=== PATIENT | female | born 2000 | race Caucasian/White ===

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

== ENCOUNTER 2020-04-30 13:10 | Emergency (ER) | payer OTHER, MEDICAID ==
[2020-04-30] MEDS ORDERED: Sodium Chloride 0.9% 10 ML Syringe FLUSH PRN ×2 (13:31→17:12)
[2020-04-30] MEDS ORDERED: Sodium Chloride 0.9% 1,000 ML IV ONE ×3 (13:31→17:59)
[2020-04-30] MEDS ORDERED: Ondansetron 4 MG/2 ML SDV IVPUSH ONE (13:34)
[2020-04-30] MEDS ORDERED: LORazepam 2 MG/ML SDV IVPUSH ONE (13:48)
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
[2020-04-30] MEDS ORDERED: Ketorolac 30 MG/ML SDV IVPUSH ONE (14:15)
--- NOTE | 2020-04-30 14:30 | CR ---
Chest: Portable view of the chest was obtained. Comparison: No prior chest imaging is available. Heart size and mediastinum are normal. Lungs are clear with no acute parenchymal change. Scoliosis is noted within the spine. Impression: 1. Scoliosis. 2. Nothing acute is identified on portable chest x-ray. Diagnostic code #2 This report was dictated in MDT
[2020-04-30] MEDS ORDERED: LORazepam 2 MG/ML SDV IV ONE (14:50)
[2020-04-30] MEDS ORDERED: Iopamidol 612 MG/ML 100 ML Bottle IVPUSH ONE (17:12)
--- NOTE | 2020-04-30 17:32 | CT ---
CT left elbow Technique: Multiple axial sections to the left elbow were obtained. Intravenous contrast was utilized. Reconstructed coronal and sagittal images were obtained. Findings: There is enhancement being seen within the subcutaneous tissues at the flexure point of the elbow. This enhancement extends into the adjacent muscle. There is some soft tissue air being seen within the muscle and subcutaneous fat. Low density is noted within the subcutaneous fat presumably due to small abscess. Other findings felt compatible with cellulitis and myositis. Overall area of enhancement is approximately 3.5 cm x 1.6 cm. No findings of osteomyelitis are seen. Impression: 1. Air within the anterior soft tissues at the elbow flexure. Please correlate if there has been interval intervention or whether this represents air from anaerobic infection. 2. Low density within the adjacent subcutaneous fat most likely representing superficial abscess. Enhancement is noted within the subcutaneous fat as well as within the adjacent muscle compatible with cellulitis and myositis. 3. No osteomyelitis is seen. Diagnostic code #3 This report was dictated in MDT
== END 2020-04-30 18:20 ==
LOC: JD.ED 13:10 → EEVIPCON 13:10 → JD.ED 18:20
DX: L02.414 Cutaneous abscess of left upper limb (principal); L03.114 Cellulitis of left upper limb; R11.2 Nausea with vomiting, unspecified; F17.210 Nicotine dependence, cigarettes, uncomplicated; Z88.1 Allergy status to other antibiotic agents; Z20.828 Contact with and (suspected) exposure to other viral communicable diseases
CPT/HCPCS: 36415; 71045; 73201; 80053; 80074; 80306; 81001; 83605; 83690; 85007; 85027; 85610; 86140; 86803; 87040; 87075; 87077; 87184; 87205; 87340; 87449; 87635; 96361; 96374; 96375; 96376; 99285; J1885; J2060; J2405; J3370; J7030; J7050; Q9967; 99284; G0433; U0002

== ENCOUNTER 2020-05-07 23:09 | Emergency (ER) | payer OTHER, MEDICAID ==
--- NOTE | 2020-05-07 23:27 | EDM.PDOC ---
ED HPI GENERAL MEDICAL PROBLEM - General Chief Complaint: Skin Complaint Stated Complaint: NEEDS STITCHES REDONE Time Seen by Provider: 05/07/20 23:25 - History of Present Illness INITIAL COMMENTS - FREE TEXT/NARRATIVE: 20-year-old female presents the emergency room with stitches that popped loose on a abscess she had drained on the fourth of this month. Patient went to change her dressing and noticed that her stitches were coming loose. Patient had a antecubital fossa abscess drained at [facility] on the fourth. Patient denies fevers or chills she has been doing daily dressing changes as directed. She has been taking her Ceftin 2 and 50 mg p.o. twice daily and her Flagyl 250 mg 3 times daily she is to be on these for a week. Patient is not having significant pain or discomfort no significant drainage from the area Left Arm Pain Score (Numeric/FACES): 5 - Related Data Allergies Allergy/AdvReac Type Severity Reaction Status Date / Time amoxicillin [From Augmentin] AdvReac Vomiting Verified 05/07/20 23:26 clavulanic acid AdvReac Vomiting Verified 05/07/20 23:26 [From Augmentin] Home Meds: Home Meds Ibuprofen [Motrin] 0 mg PO TID 05/07/20 [History] Past Medical History Genitourinary History: Reports: UTI, Recurrent OFFICE EMPLOYEE History: Reports: Other (See Below) Other OFFICE EMPLOYEE History: PID Neurological History: Reports: Seizure Other Neuro History: "seizures caused from stress" - Past Surgical History HEENT Surgical History: Reports: Adenoidectomy, Myringotomy w Tube(s), Tonsillectomy Female Surgical History: Reports: Other (See Below) Other Female Surgeries/Procedures: PID Social & Family History - Family History Family Medical History: Noncontributory - Caffeine Use Caffeine Use: Reports: Coffee ED ROS GENERAL - Review of Systems Review Of Systems: See Below Constitutional: Reports: No Symptoms. Denies: Fever, Chills Respiratory: Reports: No Symptoms Cardiovascular: Reports: No Symptoms GI/Abdominal: Reports: No Symptoms ED EXAM, SKIN/RASH Exam: See Below Exam Limited By: No Limitations General Appearance: Alert, No Apparent Distress Head: Atraumatic, Normocephalic Neck: Normal Inspection, Supple, Non-Tender, Full Range of Motion Respiratory/Chest: No Respiratory Distress, Lungs Clear, Normal Breath Sounds Cardiovascular: Regular Rate, Rhythm, No Edema, No Murmur Extremities: Other (Examination of her left antecubital area shows multiple horizontal mattress stitches on the lateral aspect of the incision the first stitch is intact the second and third 1 have pulled loose the remaining remaining ones appear to be intact there is no significant drainage or erythema noted. She has some clear serous fluid in the open area. This is cultured. The 2 stitches that were pulled loose from the proximal skin were removed without difficulty. Sterile dressing applied.) Course - Vital Signs Last Recorded V/S: Last Vital Signs Temp 36.4 C 05/07/20 23:21 Pulse 81 05/07/20 23:21 Resp 16 05/07/20 23:21 BP 141/99 H 05/07/20 23:21 Pulse Ox 100 05/07/20 23:21 - Orders/Labs/Meds Orders: Active Orders 24 hr Category Date Time Status CULTURE WOUND [RM] Stat Lab 05/07/20 23:44 Received - Re-Assessments/Exams Free Text/Narrative Re-Assessment/Exam: 05/07/20 23:59 Case was discussed with Dr. Sallie Coleman who is on-call for Dr. Reed who agrees. At his recommendation we did culture the serous drainage will not extend antibiotics until culture and sensitivity are reviewed. Patient has follow-up on the Departure - Departure Time of Disposition: 00:00 Disposition: Home, Self-Care 01 Clinical Impression: Wound dehiscence, surgical - Discharge Information Forms: ED Department Discharge Additional Instructions: Return to the emergency room with any questions problems or worsening symptoms. Call your surgeons office tomorrow and confirm that the stitches are supposed to be removed on the . Informed them that you were seen here in the emergency room this evening and I did discuss the case with Dr. Sallie Coleman. Culture and sensitivity was obtained and is pending. Continue your daily dressing changes as advised. Continue with the antibiotics until all gone. Sepsis Event Note (ED) - Focused Exam Vital Signs: Vital Signs Temp Pulse Resp BP Pulse Ox 05/07/20 23:21 36.4 C 81 16 141/99 H 100 - My Orders Last 24 Hours: My Active Orders 05/07/20 23:44 CULTURE WOUND [RM] Stat - Assessment/Plan Last 24 Hours: My Active Orders 05/07/20 23:44 CULTURE WOUND [RM] Stat
== END 2020-05-08 00:11 | disposition home or self-care (01) ==
LOC: JD.ED 23:09
DX: T81.30XA Disruption of wound, unspecified, initial encounter (principal); Z88.1 Allergy status to other antibiotic agents; Z79.899 Other long term (current) drug therapy
CPT/HCPCS: 87070; 99282; 99283

== ENCOUNTER 2021-06-19 17:53 | Emergency (ER) | payer MEDICAID, OTHER ==
[2021-06-19] MEDS ORDERED: Ibuprofen 600 MG Tab PO ONE (18:16)
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
--- NOTE | 2021-06-20 06:55 | CR ---
Right forearm: 2 views of the right forearm were obtained. Comparison: No prior study is available. Soft tissue swelling is seen. Calcifications are seen around the elbow compatible with old injury. No acute fracture or other acute bony abnormality is seen. Impression: 1. Soft tissue swelling. 2. Old abnormality is noted off the elbow. 3. No definite acute fracture is seen. Diagnostic code #2
== END 2021-06-19 19:30 | disposition home or self-care (01) ==
LOC: JD.ED 17:53
DX: S57.81XA Crushing injury of right forearm, initial encounter (principal); Z88.0 Allergy status to penicillin; Z72.0 Tobacco use; W23.0XXA Caught, crushed, jammed, or pinched between moving objects, initial encounter
CPT/HCPCS: 73090; 99283; A9270

== ENCOUNTER 2021-06-28 11:30 | Emergency (ER) | payer MEDICAID ==
[2021-06-28] MEDS ORDERED: Sodium Chloride 0.9% 10 ML Syringe FLUSH PRN (11:43)
[2021-06-28] MEDS ORDERED: LORazepam 2 MG/ML SDV IVPUSH ONE (11:43)
--- NOTE | 2021-06-28 11:50 | EDM.PDOC ---
ED HPI GENERAL MEDICAL PROBLEM - General Chief Complaint: Neurological Problem Stated Complaint: RENATA AMB Time Seen by Provider: 06/28/21 11:34 Source of Information: Reports: Patient, RN Notes Reviewed History Limitations: Reports: No Limitations - History of Present Illness INITIAL COMMENTS - FREE TEXT/NARRATIVE: Patient is a 21-year-old female who presents to the ER for the evaluation of a seizure. Patient was brought in by [facility]. Apparently the patient was at work today, when she suffered from a seizure. Patient has a history of seizures but is not on any medications for these. States she has never been on medications. Patient's not aware if she hit her head, but she is not having any sort of headache or anything like that. She states that for the past few days however she has felt a little bit dizzy or lightheaded. Patient does have a history of using methamphetamines roughly 1 to 2 weeks ago. Patient does appear to be under the influence of some sort of substance at this time. Her gait is very unsteady, she seems a little bit slow or off as well. But she does answer questions appropriately. She is not having any fevers or chills, cough or shortness of breath, or any sort of nausea/vomiting/diarrhea. Patient states that she has had some "ear draining" for the last few days as well. States she never had a neurologist, and she does not really have a primary care provider as well. - Related Data Allergies Allergy/AdvReac Type Severity Reaction Status Date / Time amoxicillin [From Augmentin] AdvReac Vomiting Verified 06/28/21 11:38 clavulanic acid AdvReac Vomiting Verified 06/28/21 11:38 [From Augmentin] Home Meds: Home Meds Ibuprofen [Motrin] 0 mg PO TID 05/07/20 [History] Cefdinir [Omnicef] 300 mg PO BID 10 Days #20 cap 06/28/21 [Rx] Past Medical History Genitourinary History: Reports: UTI, Recurrent TRIMMER MEAT History: Reports: Other (See Below) Other TRIMMER MEAT History: PID Neurological History: Reports: Seizure Other Neuro History: "seizures caused from stress" not on medications - Past Surgical History HEENT Surgical History: Reports: Adenoidectomy, Myringotomy w Tube(s), Tonsillectomy Female Surgical History: Reports: Other (See Below) Other Female Surgeries/Procedures: PID Social & Family History - Family History Family Medical History: No Pertinent Family History - Caffeine Use Caffeine Use: Reports: Coffee, Energy Drinks, Soda ED ROS GENERAL - Review of Systems Review Of Systems: Comprehensive ROS is negative, except as noted in HPI. - Physical Exam Exam: See Below Exam Limited By: No Limitations General Appearance: Alert, WD/WN, No Apparent Distress, Other (pt does appear to be under the influence of some substance. She has some generalized jerkiness- but this does not seem too much worse than some of the last times I have evaluated her. She answers questions appropriately.) Eye Exam: Bilateral Eye: EOMI, Normal Inspection, PERRL (pupils are dilated) Ears: Normal External Exam, Normal Canal, Hearing Grossly Normal, Other (L EAC does have cerumen impaction, R EAC appears within normal limits.) Throat/Mouth: Normal Inspection, Normal Lips, Normal Teeth, Normal Gums, Normal Oropharynx, Normal Voice, No Airway Compromise Head Exam: Atraumatic, Normocephalic Respiratory/Chest: No Respiratory Distress, Lungs Clear, Normal Breath Sounds, No Accessory Muscle Use, Chest Non-Tender Cardiovascular: Normal Peripheral Pulses, Regular Rate, Rhythm, No Edema GI/Abdominal: Normal Bowel Sounds, Soft, Non-Tender, No Distention, No Mass Neuro Exam (Abbreviated): Alert, Oriented, Normal Cognition, No Motor/Sensory Deficits Extremities: Normal Inspection, Normal Capillary Refill Psychiatric: Normal Affect, Normal Mood Skin Exam: Warm, Dry, Intact, Normal Color, No Rash Course - Vital Signs Last Recorded V/S: Last Vital Signs Temp 96.9 F 06/28/21 11:32 Pulse 90 06/28/21 11:32 Resp 18 06/28/21 11:32 BP 148/134 H 06/28/21 11:32 Pulse Ox 100 06/28/21 11:32 - Orders/Labs/Meds Orders: Active Orders 24 hr Category Date Time Status Peripheral IV Care [RC] . DIRECTED Care 06/28/21 11:43 Ordered CULTURE URINE [MREF] Urgent Lab 06/28/21 12:42 Ordered Sodium Chloride 0.9% [Saline Flush] Med 06/28/21 15:45 Active 10 ml FLUSH ASDIRECTED Sodium Chloride 0.9% [Saline Flush] Med 06/28/21 11:43 Ordered 10 ml FLUSH ASDIRECTED PRN Peripheral IV Insertion Adult [OM.PC] Routine Oth 06/28/21 11:42 Ordered Medication Orders Sodium Chloride (Sodium Chloride 0.9% 10 Ml Syringe) 10 ml FLUSH ASDIRECTED PRN PRN Reason: Keep Vein Open Last Admin: 06/28/21 11:53 Dose: 10 ml Documented by: MACHO Sodium Chloride (Sodium Chloride 0.9% 10 Ml Syringe) 10 ml FLUSH ASDIRECTED DOUGIE Last Admin: 06/28/21 16:17 Dose: 10 ml Documented by: Labs: Laboratory Tests 06/28/21 06/28/21 06/28/21 Range/Units 11:45 11:45 11:45 WBC 10.31 H (3.98-10.04) K/mm3 RBC 5.09 (3.98-5.22) M/mm3 Hgb 15.8 H (11.2-15.7) gm/dl Hct 46.4 H (34.1-44.9) % MCV 91.2 D (79.4-94.8) fl MCH 31.0 (25.6-32.2) pg MCHC 34.1 (32.2-35.5) g/dl RDW Std Deviation 41.4 (36.4-46.3) fL Plt Count 264 D (182-369) K/mm3 MPV 10.3 (9.4-12.3) fl Neut % (Auto) 79.4 H (34.0-71.1) % Lymph % (Auto) 15.6 L (19.3-51.7) % Benson % (Auto) 4.2 L (4.7-12.5) % Eos % (Auto) 0.4 L (0.7-5.8) Baso % (Auto) 0.2 (0.1-1.2) % Neut # (Auto) 8.19 H (1.56-6.13) K/mm3 Lymph # (Auto) 1.61 (1.18-3.74) K/mm3 Benson # (Auto) 0.43 H (0.24-0.36) K/mm3 Eos # (Auto) 0.04 (0.04-0.36) K/mm3 Baso # (Auto) 0.02 (0.01-0.08) K/mm3 Sodium (136-145) mEq/L Potassium (3.5-5.1) mEq/L Chloride (98-107) mEq/L Carbon Dioxide (21-32) mEq/L Anion Gap (5-15) BUN (7-18) mg/dL Creatinine (0.55-1.02) mg/dL Est Cr Clr Drug Dosing mL/min Estimated GFR (MDRD) (>60) mL/min BUN/Creatinine Ratio (14-18) Glucose (70-99) mg/dL Calcium (8.5-10.1) mg/dL Magnesium (1.8-2.4) mg/dL Total Bilirubin (0.2-1.0) mg/dL AST (15-37) U/L ALT (14-59) U/L Alkaline Phosphatase (46-116) U/L C-Reactive Protein (<1.0) mg/dL Total Protein (6.4-8.2) g/dl Albumin (3.4-5.0) g/dl Globulin gm/dL Albumin/Globulin Ratio (1-2) Urine Color Yellow (Yellow) Urine Appearance Clear (Clear) Urine pH 6.0 (5.0-8.0) Ur Specific [place] > or = 1.030 (1.005-1.030) Urine Protein Negative (Negative) Urine Glucose (UA) Negative (Negative) Urine Ketones Negative (Negative) Urine Occult Blood Negative (Negative) Urine Nitrite Negative (Negative) Urine Bilirubin Negative (Negative) Urine Urobilinogen 0.2 (0.2-1.0) Ur Leukocyte Esterase Trace H (Negative) Urine RBC 0-5 (0-5) /hpf Urine WBC 5-10 H (0-5) /hpf Ur Squamous Epith Cells 5-10 H (0-5) /hpf Amorphous Sediment Moderate H (NOT SEEN) /hpf Urine Bacteria Moderate H (FEW) /hpf Urine Mucus Moderate H (FEW) /hpf Urine Opiates Screen Negative (EVBJAT=735) Ur Buprenorphine Scrn Negative (CUTOFF=10) Ur Oxycodone Screen Negative (SOG1OD=685) Urine Methadone Screen Negative (SWBJAW=031) Ur Propoxyphene Screen Negative (JMSMUE=015) Ur Barbiturates Screen Negative (UOWUGW=392) Ur Tricyclics Screen Negative (ZDTAGK=441) Ur Phencyclidine Scrn Negative (CUTOFF=25) Ur Amphetamine Screen Negative (JYPNZM=932) U Methamphetamines Scrn Negative (RSADLK=654) U Benzodiazepines Scrn Negative (ZHXIIM=112) U Cocaine Metab Screen Negative (ETHSGQ=889) U Marijuana (THC) Screen Negative (CUTOFF=50) Ethyl Alcohol (0.00) gm% 06/28/21 06/28/21 Range/Units 11:45 11:45 WBC (3.98-10.04) K/mm3 RBC (3.98-5.22) M/mm3 Hgb (11.2-15.7) gm/dl Hct (34.1-44.9) % MCV (79.4-94.8) fl MCH (25.6-32.2) pg MCHC (32.2-35.5) g/dl RDW Std Deviation (36.4-46.3) fL Plt Count (182-369) K/mm3 MPV (9.4-12.3) fl Neut % (Auto) (34.0-71.1) % Lymph % (Auto) (19.3-51.7) % Benson % (Auto) (4.7-12.5) % Eos % (Auto) (0.7-5.8) Baso % (Auto) (0.1-1.2) % Neut # (Auto) (1.56-6.13) K/mm3 Lymph # (Auto) (1.18-3.74) K/mm3 Benson # (Auto) (0.24-0.36) K/mm3 Eos # (Auto) (0.04-0.36) K/mm3 Baso # (Auto) (0.01-0.08) K/mm3 Sodium 141 (136-145) mEq/L Potassium 4.0 (3.5-5.1) mEq/L Chloride 107 (98-107) mEq/L Carbon Dioxide 27 (21-32) mEq/L Anion Gap 11.0 (5-15) BUN 17 (7-18) mg/dL Creatinine 0.8 (0.55-1.02) mg/dL Est Cr Clr Drug Dosing 83.94 mL/min Estimated GFR (MDRD) > 60 (>60) mL/min BUN/Creatinine Ratio 21.3 H (14-18) Glucose 83 (70-99) mg/dL Calcium 8.7 (8.5-10.1) mg/dL Magnesium 2.1 (1.8-2.4) mg/dL Total Bilirubin 0.4 (0.2-1.0) mg/dL AST 12 L (15-37) U/L ALT 29 (14-59) U/L Alkaline Phosphatase 71 (46-116) U/L C-Reactive Protein <0.2 (<1.0) mg/dL Total Protein 7.2 (6.4-8.2) g/dl Albumin 4.0 (3.4-5.0) g/dl Globulin 3.2 gm/dL Albumin/Globulin Ratio 1.3 (1-2) Urine Color (Yellow) Urine Appearance (Clear) Urine pH (5.0-8.0) Ur Specific [place] (1.005-1.030) Urine Protein (Negative) Urine Glucose (UA) (Negative) Urine Ketones (Negative) Urine Occult Blood (Negative) Urine Nitrite (Negative) Urine Bilirubin (Negative) Urine Urobilinogen (0.2-1.0) Ur Leukocyte Esterase (Negative) Urine RBC (0-5) /hpf Urine WBC (0-5) /hpf Ur Squamous Epith Cells (0-5) /hpf Amorphous Sediment (NOT SEEN) /hpf Urine Bacteria (FEW) /hpf Urine Mucus (FEW) /hpf Urine Opiates Screen (KRIRGW=536) Ur Buprenorphine Scrn (CUTOFF=10) Ur Oxycodone Screen (GDW4GH=116) Urine Methadone Screen (ENREUC=274) Ur Propoxyphene Screen (BZUIER=678) Ur Barbiturates Screen (DEZZHW=319) Ur Tricyclics Screen (VNNCJA=815) Ur Phencyclidine Scrn (CUTOFF=25) Ur Amphetamine Screen (FPHOLJ=418) U Methamphetamines Scrn (QZXTII=166) U Benzodiazepines Scrn (HVJTWW=568) U Cocaine Metab Screen (PXAODH=160) U Marijuana (THC) Screen (CUTOFF=50) Ethyl Alcohol 0.00 (0.00) gm% Meds: Medications Generic Name Dose Route Start Last Admin Trade Name Freq PRN Reason Stop Dose Admin Sodium Chloride 10 ml 06/28/21 11:43 06/28/21 11:53 Sodium Chloride 0.9% 10 Ml Syringe FLUSH 10 ml ASDIRECTED PRN Administration Keep Vein Open Sodium Chloride 10 ml 06/28/21 15:45 06/28/21 16:17 Sodium Chloride 0.9% 10 Ml Syringe FLUSH 10 ml ASDIRECTED DOUGIE Administration Discontinued Medications Generic Name Dose Route Start Last Admin Trade Name Gayle PRN Reason Stop Dose Admin Gadobenate Dimeglumine 11 ml 06/28/21 15:45 06/28/21 16:17 Gadobenate Dimeglumine 529 Mg/Ml 15 Ml Sdv IVPUSH 06/28/21 15:46 11 ml ONETIME ONE Administration Lorazepam 1 mg 06/28/21 11:43 06/28/21 11:53 Lorazepam 2 Mg/Ml Sdv IVPUSH 06/28/21 11:44 1 mg ONETIME ONE Administration - Re-Assessments/Exams Free Text/Narrative Re-Assessment/Exam: 06/28/21 11:51 Patient presents to the ER for evaluation of her seizure at work. We will go ahead and give her 1 dose of Ativan, some basic labs and urinalysis as well. Patient does appear to be under the influence of some sort of substance however she did not admit to taking anything today. Patient states she is not having any headache, nor did she think she hit her head. 06/28/21 12:55 Laboratory evaluation is unremarkable however her urinalysis is slightly suspicious for contamination versus possible UTI. A culture will be sent for further investigation. Patient denies any sort of dysuria, frequency or urgency. Urine drug screen was negative, blood alcohol level was negative as well. I did talk with the patient's father who was present in the room on further examination and he and the patient both agree to have a head CT performed to rule out any sort of structural abnormalities or otherwise as the patient's not had a seizure in some time. They are somewhat worried about the patient's ongoing dizziness but she has been having issues with her ears for a while as well to so it very well could be due to eustachian tube dysfunction. 06/28/21 13:[address] has been performed, there are no gross structural abnormality as reviewed by myself however official radiology read is still pending. 06/28/21 14:[address] has returned, there is opacification of the right mastoid sinus, please correlate if patient has symptoms to suggest mastoiditis, also chronic sinus findings within the paranasal sinuses. Due to the findings of possible mastoiditis, and her having ear drainage issues for the last 2 months or otherwise and having ongoing dizziness. I have called ENT for consult on the patient. Dr. Doran at [facility] is marketing operations specialist however she was having difficulty getting a hold of him, so she had to leave a message. 06/28/21 14:22 I was able to speak with Dr. Doran, and he is concerned about the findings on the CT and does suggest an MRI to be done for further evaluation. I did call our submarine cable equipment technician, and the patient can have an MRI done in about an hour's time. Order has been placed for ongoing management for evaluation of ongoing mastoiditis versus other etiology. Dr. Doran also does recommend placing the patient on oral antibiotics, he states Omnicef would be just fine. 06/28/21 16:53 The patient's brain MRI has been obtained, there is mucosal thickening seen within the right mastoid sinus which is stable from the prior head CT exam nothing is seen on the study to indicate acute change please correlate that the patient has no symptoms of fever or localized tenderness. Which she does not. Other chronic sinus findings partially seen. No other abnormality identified on the MRI study of the brain. We will go ahead and get the patient discharged home with oral antibiotics and have her follow-up either in the ER, or present to the [place] ER if her symptoms should change or worsen, as she would necessitate higher level of care by ENT. Departure - Departure Time of Disposition: 16:54 Disposition: Home, Self-Care 01 Condition: Good Clinical Impression: Mastoiditis Qualifiers: Laterality: right Qualified Code(s): H70.91 - Unspecified mastoiditis, right ear UTI (urinary tract infection) Qualifiers: Urinary tract infection type: acute cystitis Hematuria presence: without hematuria Qualified Code(s): N30.00 - Acute cystitis without hematuria - Discharge Information *PRESCRIPTION DRUG MONITORING PROGRAM REVIEWED*: No *COPY OF PRESCRIPTION DRUG MONITORING REPORT IN PATIENT LIBRADO: No Prescriptions: Cefdinir [Omnicef] 300 mg PO BID 10 Days #20 cap Instructions: Urinary Tract Infection, Adult, [id number], Dizziness, [id number], Seizure, Adult, [id number] Referrals: Yayo Doran MD [Ordering Only Provider] - Forms: ED Department Discharge, ED Return to Work/School Form Additional Instructions: You were evaluated in the ER today for your seizure, and dizziness. Your evaluation in the ER today necessitated some labs, head CT and a brain MRI. Urinalysis was suspicious for ongoing UTI and the antibiotics you have been started on today should also cover this as well. A urine culture was sent to make sure that we are picking appropriate antibiotic as well. Head CT was suspicious for mastoiditis, and a brain MRI was obtained as well, it does show some chronic sinus changes and mucosal thickening within the right mastoid sinus. You have been started on oral antibiotics, Omnicef 1 tablet 2 times a day for the next 10 days. This medication was electronically sent to the [place] [facility]. You have been given a handout on mastoiditis, and you will need to present back to the ER, if your symptoms should change or worsen. But it can cause some inner ear issues, which attribute to some of your dizziness and balance. You may need to follow-up with ENT in [place], Dr. Doran was consulted on your case, you may call his clinic for re-assessment and ongoing management. Telephone number [phone]. Please call his office early Thursday morning to discuss with him the possibility of obtaining an appointment for ongoing management. If you do not have a primary care provider already, I recommend that you follow- up with a provider in our clinic, any family practice provider would be able to provide you with the services. Our clinic telephone number [phone], please call in the morning to obtain an appointment with the provider, for follow-up of your symptoms that prompted your ER visit today. Do not hesitate to return to the ER at any time if symptoms change or worsen. Sepsis Event Note (ED) - Focused Exam Vital Signs: Vital Signs Temp Pulse Resp BP Pulse Ox 06/28/21 11:32 96.9 F 90 18 148/134 H 100 - My Orders Last 24 Hours: My Active Orders 06/28/21 11:42 Peripheral IV Insertion Adult [OM.PC] Routine 06/28/21 11:43 Peripheral IV Care [RC] . DIRECTED Sodium Chloride 0.9% [Saline Flush] 10 ml FLUSH ASDIRECTED PRN 06/28/21 12:42 CULTURE URINE [MREF] Urgent 06/28/21 15:45 Sodium Chloride 0.9% [Saline Flush] 10 ml FLUSH ASDIRECTED - Assessment/Plan Last 24 Hours: My Active Orders 06/28/21 11:42 Peripheral IV Insertion Adult [OM.PC] Routine 06/28/21 11:43 Peripheral IV Care [RC] . DIRECTED Sodium Chloride 0.9% [Saline Flush] 10 ml FLUSH ASDIRECTED PRN 06/28/21 12:42 CULTURE URINE [MREF] Urgent 06/28/21 15:45 Sodium Chloride 0.9% [Saline Flush] 10 ml FLUSH ASDIRECTED
--- NOTE | 2021-06-28 13:47 | CT ---
Head CT Technique: Multiple axial sections through the brain were obtained. Intravenous contrast was not utilized. Reconstructed coronal and sagittal images were obtained. Comparison: No prior intracranial imaging is available. Findings: Ventricles along with basal cisterns and sulci over the convexities are within normal limits for the patient's age. No abnormal parenchymal densities are seen. No evidence of intracranial hemorrhage is seen. No midline shift or mass-effect is seen. Rounded soft tissue density is noted within the right sphenoid sinus measuring 9 mm most likely representing a retention cyst. Minimal mucosal thickening is seen within the right frontal sinus. There is opacification of the right mastoid sinus being seen. No acute calvarial abnormality is appreciated. Impression: 1. Opacification of the right mastoid sinus. Please correlate if patient has any symptoms to suggest mastoiditis. 2. Chronic sinus findings within the paranasal sinuses. 3. No acute intracranial abnormality is appreciated. Diagnostic code #3
[2021-06-28] MEDS ORDERED: Sodium Chloride 0.9% 10 ML Syringe FLUSH SCH (15:45)
[2021-06-28] MEDS ORDERED: Gadobenate Dimeglumine 529 MG/ML 15 ML SDV IVPUSH ONE (15:45)
--- NOTE | 2021-06-28 16:43 | MR ---
MRI brain (without and with intravenous contrast) Technique: T1 sagittal; T2, T1, T2 FLAIR and diffusion axial; T1 FLAIR coronal; postcontrast T1 fat-suppressed axial and T1 coronal images were obtained. Comparison: Prior head CT study performed earlier in the same day (12:53 PM). Findings: Opacified right mastoid sinus is noted. Chronic sinus findings are seen within other portions of the paranasal sinuses. There is artifact being seen presumably from dental hardware. No definite abnormal intraparenchymal signal is seen. No midline shift or mass-effect is seen. No definite abnormal diffusion is seen on these limited images. No abnormal enhancement is seen. Normal signal void is seen within the major cerebral arteries within the skull base. Impression: 1. Mucosal thickening is seen within the right mastoid sinus which is stable from prior head CT exam. Nothing is seen on this study to indicate acute change. Please correlate that the patient has no symptoms of fever or localized tenderness in this area. 2. Chronic sinus findings are partially seen. 3. No additional abnormality is identified on this somewhat limited MRI study of the brain. Diagnostic code #2
== END 2021-06-28 17:55 | disposition home or self-care (01) ==
LOC: JD.ED 11:30
DX: H70.91 Unspecified mastoiditis, right ear (principal); N30.00 Acute cystitis without hematuria; R56.9 Unspecified convulsions; Z88.0 Allergy status to penicillin; Z88.1 Allergy status to other antibiotic agents
CPT/HCPCS: 36415; 70450; 70553; 80053; 80306; 80307; 81001; 83735; 85025; 86140; 87086; 96374; 96375; 99284; A9577; J2060

== ENCOUNTER 2022-10-23 22:58 | Emergency (ER) | payer MEDICAID ==
[2022-10-24] MEDS ORDERED: Alum Hydrox/Mag Hydrox/Simeth 30 ML, Lidocaine 2% 15 ML PO ONE ×2 (00:22)
[2022-10-24] MEDS ORDERED: Sucralfate Suspension 1 GM/10 ML Cup PO ONE (00:55)
[2022-10-24] MEDS ORDERED: Famotidine 20 MG Tab PO ONE (01:54)
[2022-10-24] MEDS ORDERED: Pantoprazole 40 MG Tab.CR PO ONE (01:55)
== END 2022-10-24 02:15 | disposition home or self-care (01) ==
LOC: JD.ED 22:58
DX: R10.13 Epigastric pain (principal)
CPT/HCPCS: 36415; 71045; 80053; 83690; 84484; 85025; 85379; 86140; 93005; 99285; A9270; 99284

== ENCOUNTER 2022-10-31 14:43 | Emergency (ER) | payer MEDICAID ==
[2022-10-31] MEDS ORDERED: Sodium Chloride 0.9% 1,000 ML IV STA (15:23)
[2022-10-31] MEDS ORDERED: Ondansetron 4 MG/2 ML SDV IVPUSH ONE (15:23)
[2022-10-31] MEDS ORDERED: Sodium Chloride 0.9% 10 ML Syringe FLUSH PRN (15:23)
[2022-10-31] MEDS ORDERED: Famotidine 20 MG/2 ML SDV IVPUSH ONE (15:24)
== END 2022-10-31 17:44 | disposition home or self-care (01) ==
LOC: JD.ED 14:43
DX: A08.4 Viral intestinal infection, unspecified (principal); K21.9 Gastro-esophageal reflux disease without esophagitis; F17.210 Nicotine dependence, cigarettes, uncomplicated; Z79.899 Other long term (current) drug therapy
CPT/HCPCS: 36415; 80053; 83690; 84703; 85025; 96361; 96374; 96375; 99284; J2405; J3490; J7030; 99283